=== PATIENT | female | born 1980 | race American Indian/Alaskan Native ===

== ENCOUNTER 2017-07-14 19:45 | Emergency (ER) | payer SELFPAY ==
[2017-07-14] MEDS ORDERED: TYLENOL ONE (20:02)
[2017-07-14 20:13] VITALS: BP 138/85
[2017-07-14] MEDS ORDERED: TYLENOL PO ONE (20:13)
[2017-07-15] MEDS ORDERED: MOTRIN ONE (01:12)
[2017-07-15] MEDS ORDERED: MOTRIN PO ONE (01:16)
[2017-07-15] MEDS ORDERED: LIDOCAINE VISCOUS 2% ONE (01:16)
[2017-07-15] MEDS ORDERED: LIDOCAINE VISCOUS 2% PO ONE (01:31)
[2017-07-15] MEDS ORDERED: BICILLIN L-A IM ONE (02:24)
--- NOTE | 2017-07-15 02:33 | Emergency Department Report ---
ED ENT HPI - General Chief complaint: Sore Throat Stated complaint: SORE THROAT Time Seen by Provider: 07/15/17 02:16 Source: patient, family Mode of arrival: Ambulatory Limitations: No Limitations - History of Present Illness Initial comments: 37-year-old -[place] female comes in complaint of sore throat with excessive spitting and fever 3 days. Patient fevers 102.6 in triage. Patient admits to headache and nausea but no vomiting. Patient reports she has excessive spitting and complains of sore throat and points to her neck. Patient tried to take Tylenol but without much relief of pain. Patient has no past medical history currently takes no medications on a daily basis and has no known drug allergies. MD complaint: sore throat -: days(s) (3) Severity: severe Severity scale (0 -10): 10 Quality: burning, aching, sharp Consistency: constant Improves with: none Worsens with: swallowing Associated Symptoms: fever, pain with swallowing, sore throat - Related Data Previous Rx's Medication Instructions Recorded Last Taken Type Ibuprofen [Motrin 800 MG tab] 800 mg PO Q8HR PRN #30 tablet 07/15/17 Unknown Rx Allergies Allergy/AdvReac Type Severity Reaction Status Date / Time No Known Allergies Allergy Verified 07/14/17 20:16 ED Dental HPI - General Chief complaint: Sore Throat Stated complaint: SORE THROAT Time Seen by Provider: 07/15/17 02:16 Source: patient, family Mode of arrival: Ambulatory Limitations: No Limitations - Related Data Previous Rx's Medication Instructions Recorded Last Taken Type Ibuprofen [Motrin 800 MG tab] 800 mg PO Q8HR PRN #30 tablet 07/15/17 Unknown Rx Allergies Allergy/AdvReac Type Severity Reaction Status Date / Time No Known Allergies Allergy Verified 07/14/17 20:16 ED Review of Systems ROS: Stated complaint: SORE THROAT Other details as noted in HPI Constitutional: chills, fever ENT: throat pain Respiratory: denies: cough, shortness of breath, wheezing Cardiovascular: denies: chest pain, palpitations Endocrine: no symptoms reported Gastrointestinal: nausea Neurological: headache Psychiatric: denies: anxiety, depression Hematological/Lymphatic: denies: easy bleeding, easy bruising ED Past Medical Hx - Past Medical History Previous Medical History?: No - Surgical History Past Surgical History?: No - Social History Smoking Status: Never Smoker Substance Use Type: None - Medications Home Medications: Home Medications Medication Instructions Recorded Confirmed Last Taken Type Ibuprofen [Motrin 800 MG tab] 800 mg PO Q8HR PRN #30 tablet 07/15/17 Unknown Rx ED Physical Exam - General Limitations: No Limitations General appearance: alert, in no apparent distress - Head Head exam: Present: atraumatic, normocephalic - Eye Eye exam: Present: normal appearance - ENT ENT exam: Present: mucous membranes moist - Expanded ENT Exam Expanded Mouth exam: Present: other (excessive spitting) Throat exam: Positive: tonsillar erythema, tonsillomegaly - Neck Neck exam: Present: tenderness, lymphadenopathy - Respiratory Respiratory exam: Present: normal lung sounds bilaterally. Absent: respiratory distress - Cardiovascular Cardiovascular Exam: Present: regular rate, normal rhythm. Absent: systolic murmur, diastolic murmur, rubs, gallop - GI/Abdominal GI/Abdominal exam: Present: soft, normal bowel sounds ED Course Vital Signs 07/14/17 07/15/17 07/15/17 19:59 01:05 01:39 Temperature 102.6 F H 99.3 F Pulse Rate 108 H Respiratory 18 18 Rate Blood Pressure 138/85 [Left] ED Medical Decision Making - Medical Decision Making Patient has been evaluated by this provider fast track. Patient has fever and sore throat headache and nausea. She has a strep triad. Strep test came back negative not sure if they were able to get a good sample. I will treat patient as if she has strep pharyngitis. She will be given pen G benzocaine 1.2 million units IM. Discharge patient on ibuprofen 800 mg every 8 hours when necessary. Patient is to follow-up with her primary care provider if symptoms persist or gets worse. I will list one below for patient. Critical care attestation.: If time is entered above; I have spent that time in minutes in the direct care of this critically ill patient, excluding procedure time. ED Disposition Clinical Impression: Acute streptococcal pharyngitis Disposition: TO HOME OR SELFCARE Is pt being admited?: No Does the pt Need Aspirin: No Condition: Stable Instructions: Ibuprofen (By mouth), Pharyngitis (ED) Additional Instructions: Please take pain medication as prescribed. You have been given penicillin injection. If symptoms persist or gets worse please follow-up with her primary care provider. I have listed one below. You can use Chloraseptic throat spray for pain. Prescriptions: Ibuprofen [Motrin 800 MG tab] 800 mg PO Q8HR PRN #30 tablet PRN Reason: Pain Referrals: PRIMARY CARE, [Primary Care Provider] - 3-5 Days [facility] [Provider Group] - 3-5 Days Forms: Work/School Release Form(ED), Accompanied Note
== END 2017-07-15 03:05 | disposition home or self-care (01) ==
LOC: ED 19:45
DX: J02.0 Streptococcal pharyngitis (principal); R11.0 Nausea
CPT/HCPCS: 87116; 87430; 96372; 99283; J0561